=== PATIENT | male | born 1980 | race Caucasian/White ===

== ENCOUNTER 2016-07-31 23:53 | Emergency (ER) | payer BC ==
[2016-07-31 21:42] LABS: BASOPHILS 0.6 %; BASOPHILS ABSOLUTE 0.05 10/3/uL (0.0-0.16); EOSINOPHILS 7.5 %; EOSINOPHILS ABSOLUTE 0.58 10/3/uL (0.0-0.53); ER CBC TAT 0 Hrs 05 Mins; HEMATOCRIT 42.5 % (40.0-51.0); HEMOGLOBIN 15.4 g/dL (13.6-17.8); IMMATURE GRANULOCYTES 0.1 %; IMMATURE GRANULOCYTES ABSOLUTE 0.01 10/3/uL (0.0-0.11); LYMPHOCYTES 46.6 %; LYMPHOCYTES ABSOLUTE 3.62 10/3/uL (0.67-4.30); MANUAL DIFF NO %; MEAN CORPUS HGB CONC 36.2 g/dL (32.0-36.0); MEAN CORPUSCULAR HEMOGLOB 30.1 pg (26.0-34.0); MEAN PLATELET VOLUME 9.7 fL (9.2-13.0); MONOCYTES 6.4 %; NEUTROPHILS 38.8 %; PLATELET COUNT 193 10/3/uL (150-400); RBC DISTRIBUTION WIDTH 12.8 % (12.0-16.0); RED CELL COUNT 5.12 10/6/uL (4.7-6.1); WHITE BLOOD CELLS 7.8 10/3/uL (4.5-10.5)
[2016-07-31 21:50] LABS: PARTIAL THROMBO TIME 28.1 SEC (22.5-37.2); PROTIME (NOT ORD) 13.3 SEC (12.0-14.5)
[2016-07-31 21:57] LABS: BUN (BLOOD UREA NITROGEN) 14 MG/DL (6-23); CALCIUM, SERUM 8.8 MG/DL (8.5-10.4); CHEST PAIN PROFILE TAT 0 Hrs 20 Mins; CHLORIDE, SERUM 106 MMOL/L (96-112); CREATININE 1.14 MG/DL (0.70-1.30); GFR AFRICAN AMERICAN 94 ML/MIN (>=60); GFR NON AFRICAN AMERICAN 81 ML/MIN (>=60); SODIUM, SERUM 143 MMOL/L (135-148); TROPONIN I <0.02 NG/ML (<0.05)
[2016-07-31 21:59] LABS: CO2 (CARBON DIOXIDE) 27 MMOL/L (24-34); GLUCOSE, SERUM 107 MG/DL (60-99); POTASSIUM, SERUM 3.3 MMOL/L (3.5-5.3)
== END 2016-08-01 04:11 | disposition home or self-care (01) ==
LOC: ER 23:53
PROVIDERS: Emergency Medicine
DX: R06.02 Shortness of breath (principal)
CPT/HCPCS: 71020; 80048; 83735; 84484; 85025; 85379; 85610; 85730; 93005; 93225; 99285